=== PATIENT | female | born 1955 ===

== ENCOUNTER 2022-05-18 08:30 | Inpatient (IN) | payer OTHER ==
[~2022-05-18] VITALS: Ht 154.9 cm; Wt 98.0 kg
[2022-05-18] MEDS ORDERED: HUMULIN R100 UNIT/1 (09:30)
[2022-05-18] MEDS ORDERED: HUMULIN 70100 UNIT/2 (09:30)
[2022-05-18] MEDS ORDERED: GABAPENT PO ×2 (09:31)
[2022-05-18] MEDS ORDERED: B-COMPLEX1 EACH PO (09:32)
[2022-05-18] MEDS ORDERED: LIPITOR40 M1 PO (09:32)
[2022-05-18] MEDS ORDERED: ADULT LOW DOSE81 M1 PO (09:33)
[2022-05-24] MEDS ORDERED: GABAPENTIN400 MG (13:11)
[2022-05-24] MEDS ORDERED: GABAPENTIN800 M1 (13:11)
[2022-05-24] MEDS ORDERED: ADVIL DUAL ACT1 EACH (13:12)
[2022-05-26] MEDS ORDERED: NORFLEX100MG PO (13:09)
[2022-05-26] MEDS ORDERED: OXYC1TAB9 PO (13:09)
[2022-05-26] MEDS ORDERED: NeuRONTin 400MG CAPS PO (13:09)
[2022-05-26] MEDS ORDERED: XARELTO10 MG PO (13:10)
== END 2022-05-26 15:32 | DRG 470 ==
LOC: EDSTATUS 08:30 → SURG 05-24 06:19 → O/R 05-24 06:19 → SURH 05-24 08:30 → EDSTATUS 05-24 08:30 → CIR.AMB 05-24 08:30 → SURH 05-24 10:30 → SURG 05-24 14:41
PROVIDERS: ADMIT Orthopaedic Surgery; ATTEND Orthopaedic Surgery
PROC: 0SRC0J9 Replacement of Right Knee Joint with Synthetic Substitute, Cemented, Open Approach (ICD-10-PCS; principal; 2022-05-24 10:30)
DX: M17.11 Unilateral primary osteoarthritis, right knee (principal); D62 Acute posthemorrhagic anemia; M85.661 Other cyst of bone, right lower leg; I10 Essential (primary) hypertension; E78.5 Hyperlipidemia, unspecified; Z96.651 Presence of right artificial knee joint; E11.9 Type 2 diabetes mellitus without complications; Z20.822 Contact with and (suspected) exposure to COVID-19

== ENCOUNTER 2023-03-01 09:24 | Inpatient (IN) | payer OTHER ==
[~2023-03-01] VITALS: Ht 154.9 cm; Wt 95.3 kg
[~2023-03-01 09:24] MED LIST: ADULT LOW DOSE81 M1 PO; ADVIL DUAL ACT1 EACH; B-COMPLEX1 EACH PO; GABAPENT PO; GABAPENTIN400 MG; GABAPENTIN800 M1; HUMULIN 70100 UNIT/2; HUMULIN R100 UNIT/1; LIPITOR40 M1 PO; NORFLEX100MG PO; NeuRONTin 400MG CAPS PO; OXYC1TAB9 PO; XARELTO10 MG PO
[2023-03-01 10:40] LABS: HEMATOCRIT 39.3 % (36.0-45.00); HEMOGLOBIN 12.7 g/dL (12.0-15.00); MEAN CELL VOLUME 83.8 fL (80.00-100.00); MEAN CORPUSCULAR HEMOGLOBIN 27.1 pg (27.00-32.0); MEAN CORPUSCULAR HGB CONC 32.3 g/dl (32.0-36.0); PLATELET COUNT 292 K/uL (150-450); RED BLOOD COUNT 4.69 M/uL (4.00-6.00); RED CELL DISTRIBUTION WIDTH 13.3 % (11.5-14.5)
[2023-03-01 10:42] LABS: PH,URINE 5.5 (5.0-8.0); URINE APPEARANCE Clear; URINE BILIRRUBIN Negative (NEGATIVE); URINE BLOOD Negative; URINE COLOR Yellow; URINE LEUKOCYTE Negative; URINE NITRATE Negative; URINE PROTEIN Negative (NEGATIVE); URINE UROBILINOGEN 0.2 E.U./dl
[2023-03-01 10:46] LABS: URINE BACTERIA 1387.1 uL (0.0-1933); URINE WBC 18.3 uL (0.0-23.2)
[2023-03-01 10:53] LABS: URINE GLUCOSE 250 MG/DL (NEGATIVE)
[2023-03-01] MEDS ORDERED: NORFLEX PO (11:02)
[2023-03-01 11:10] LABS: INR 1.01; PARTIAL THROMBOPLASTIN TIME 26.5 SECONDS (22.0-34.0); PROTHROMBIN TIME 10.6 SECONDS (9.0-11.5)
[2023-03-01 11:16] LABS: ALBUMIN 3.5 gm/dL (3.4-5.0); BILIRUBIN TOTAL 0.71 mg/dL (0.3-1.2); CALCIUM 9.1 mg/dL (8.5-10.1); CREATININE SERUM 0.78 mg/dL (0.55-1.02); GFR 73.66; GLOBULINA 3.5 G/DL (2.4-3.5); POTASSIUM 4.11 mEq/L (3.5-5.1)
[2023-03-08 06:22] LABS: HEMATOCRIT 34.5 % (36.0-45.00); HEMOGLOBIN 11.2 g/dL (12.0-15.00); MEAN CELL VOLUME 83.9 fL (80.00-100.00); MEAN CORPUSCULAR HEMOGLOBIN 27.2 pg (27.00-32.0); MEAN CORPUSCULAR HGB CONC 32.5 g/dl (32.0-36.0); PLATELET COUNT 251 K/uL (150-450); RED BLOOD COUNT 4.11 M/uL (4.00-6.00); RED CELL DISTRIBUTION WIDTH 13.3 % (11.5-14.5)
[2023-03-09 06:48] LABS: HEMATOCRIT 34.5 % (36.0-45.00); MEAN CORPUSCULAR HEMOGLOBIN 26.8 pg (27.00-32.0); MEAN CORPUSCULAR HGB CONC 31.9 g/dl (32.0-36.0); PLATELET COUNT 244 K/uL (150-450); RED CELL DISTRIBUTION WIDTH 13.2 % (11.5-14.5)
[2023-03-09] MEDS ORDERED: NORFLEX100MG PO (12:26)
[2023-03-09] MEDS ORDERED: XARELTO10 MG PO (12:26)
[2023-03-09] MEDS ORDERED: OXYC1TAB9 PO (12:26)
[2023-03-09] MEDS ORDERED: GABAPENTIN100 MG PO (12:26)
== END 2023-03-09 17:38 | disposition home or self-care (01) | DRG 467 ==
LOC: SURG 03-07 07:29 → O/R 03-07 07:29 → SURG 03-07 09:45
PROVIDERS: ADMIT Orthopaedic Surgery; ATTEND Orthopaedic Surgery
PROC: 0ST Lower Joints, Resection (ICD-10-PCS; 2023-03-07)
PROC: 0MNN0ZZ Release Right Knee Bursa and Ligament, Open Approach (ICD-10-PCS; 2023-03-07)
PROC: 0SWC0JZ Revision of Synthetic Substitute in Right Knee Joint, Open Approach (ICD-10-PCS; principal; 2023-03-07 12:30)
DX: T84.022A Instability of internal right knee prosthesis, initial encounter (principal); D62 Acute posthemorrhagic anemia; M86.051 Acute hematogenous osteomyelitis, right femur; S83.091A Other subluxation of right patella, initial encounter; M24.661 Ankylosis, right knee; M17.11 Unilateral primary osteoarthritis, right knee; Y79.2 Prosthetic and other implants, materials and accessory orthopedic devices associated with adverse incidents; E11.9 Type 2 diabetes mellitus without complications; Z79.4 Long term (current) use of insulin